=== PATIENT | female | born 1960 | race American Indian/Alaskan Native ===

== ENCOUNTER 2016-08-25 09:36 | Emergency (ER) | payer SELFPAY ==
[2016-08-25 10:12] VITALS: BP 153/90
--- NOTE | 2016-08-25 10:51 | XRay Report ---
Right hand: Laceration. There is swelling of the proximal third digit. There appears to be laceration of the skin on the radial side adjacent to the PIP joint. No foreign body and no underlying bone abnormality. The joints are aligned. No other findings. Impression: Third digit laceration.
[2016-08-25] MEDS ORDERED: VALIUM PO ONE (11:13)
[2016-08-25] MEDS ORDERED: NORCO 5/325 PO ONE (11:13)
[2016-08-25] MEDS ORDERED: XYLOCAINE 1% 20 mL INFILTRATI ONE (11:50)
[2016-08-25] MEDS ORDERED: BOOSTRIX IM ONE (12:14)
--- NOTE | 2016-08-25 12:24 | Emergency Department Report ---
Entered by LUANA WERNER, acting as scribe for ABRIL CUI PA. - General Chief Complaint: Wound/Laceration Stated Complaint: RT HAND MIDDLE FINGER Time Seen by Provider: 08/25/16 11:01 Source: patient Mode of arrival: Ambulatory Limitations: No Limitations - History of Present Illness Initial Comments: 56 year old with a PMHx of HTN and ashtma presents to the ED c/o a laceration to the 3rd digit on right hand that began this morning at 09:30. Patient states she was looking for a coffee mug in her kitchen cabinet at home and beer glass mugs began to fall breaking on impact. She subsequently received a laceration on her right hand. Associated symptom include pain on right hand, but she denies numbness, tingling, fever, nausea, vomiting, and loss of feeling. Rates her pain a 10/10 in severity. Not UTD on tetanus shot. She was driven to the ED by her daughter. NKDA. -: This morning Time: 09:30 Location: other (3rd digit on right hand) Extremity Location: Right: Hand (anterior 3rd digit) Place: home Patient Tetanus UTD: No Context: accidental (beer mugs fell out of the kitchen cabinet) Associated Symptoms: pain. denies: loss of feeling/numbness, suspect foreign body present, nausea/vomiting, fever, other (tingling) - Related Data Previous Rx's Medication Instructions Recorded Last Taken Type Cephalexin [Keflex] 500 mg PO BID #20 capsule 08/25/16 Unknown Rx Ibuprofen [Motrin] 800 mg PO Q8HR PRN #15 tablet 08/25/16 Unknown Rx Allergies Allergy/AdvReac Type Severity Reaction Status Date / Time No Known Allergies Allergy Unverified 08/25/16 10:01 ED Review of Systems Comment: All other systems reviewed and negative Constitutional: denies: chills, fever, other (tingling and loss of feeling) Respiratory: denies: orthopnea, shortness of breath, SOB with exertion, SOB at rest Cardiovascular: denies: chest pain, dyspnea on exertion, orthopnea Gastrointestinal: denies: nausea, vomiting Musculoskeletal: other (pain to 3rd digit on right hand) Skin: other (laceration on 3rd digit of right hand). denies: rash Neurological: denies: numbness ED Past Medical Hx - Past Medical History Hx Arthritis: Yes Hx Asthma: Yes - Surgical History Additional Surgical History: THYROIDECTOMY. TUBAL LIGATION. - Social History Smoking Status: Never Smoker Substance Use Type: None - Medications Home Medications: Home Medications Medication Instructions Recorded Confirmed Last Taken Type Cephalexin [Keflex] 500 mg PO BID #20 capsule 08/25/16 Unknown Rx Ibuprofen [Motrin] 800 mg PO Q8HR PRN #15 tablet 08/25/16 Unknown Rx ED Physical Exam - General Limitations: No Limitations General appearance: alert, in no apparent distress - Head Head exam: Present: atraumatic, normocephalic - Eye Eye exam: Present: normal appearance, EOMI Pupils: Present: normal accommodation - ENT ENT exam: Present: normal exam, mucous membranes moist - Neck Neck exam: Present: normal inspection, full ROM - Respiratory Respiratory exam: Present: normal lung sounds bilaterally. Absent: respiratory distress, wheezes, rales, rhonchi - Cardiovascular Cardiovascular Exam: Present: regular rate, normal rhythm. Absent: systolic murmur, diastolic murmur, rubs, gallop - GI/Abdominal GI/Abdominal exam: Present: soft. Absent: distended - Extremities Exam Extremities exam: Present: normal inspection, full ROM, tenderness (3rd digit on right hand), normal capillary refill. Absent: joint swelling - Expanded Upper Extremity Exam Right General: Present: laceration (1.5 laceration to 3rd digit on right hand). Absent: abrasion, foreign body, amputation, avulsion Shoulder Exam: Present: normal inspection, full ROM Upper Arm exam: Present: normal inspection, full ROM Elbow exam: Present: normal inspection, full ROM Forearm Wrist exam: Present: normal inspection, full ROM Hand Wrist exam: Present: full ROM, tenderness (3rd digit on right hand), laceration (3rd digit on right hand), erythema (minimal). Absent: swelling, abrasion, ecchymosis, deformity, dislocation, amputation Neuro motor exam: Present: wrist extension intact, thumb opposition intact, thumb IP flexion intact, thumb adduction intact, fingers 2-5 abduction intact Neurosensory exam: Present: radial nerve intact, ulnar nerve intact, median nerve intact. Absent: 2-point discrimination Vascular: Present: normal capillary refill, radial pulse (2+), brachial pulse (2 +), ulnar pulse (2+). Absent: vascular compromise, pulse deficit radial art, pulse deficit ulnar art, pulse deficit brachial art - Back Exam Back exam: Present: normal inspection, full ROM - Neurological Exam Neurological exam: Present: alert, oriented X3 - Psychiatric Psychiatric exam: Present: normal affect, normal mood - Skin Skin exam: Present: warm, dry, intact, erythema (minimal 3rd digit on right hand erythema), other (1.5 cm laceration on 3rd digit on right hand). Absent: rash, abrasion, ecchymosis ED Course Vital Signs 08/25/16 10:07 Temperature 98.7 F Pulse Rate 69 Respiratory 17 Rate Blood Pressure 153/90 O2 Sat by Pulse 100 Oximetry - Laceration /Wound Repair Left Finger Wound Location: upper extremity (should be right hand 3rd digit) Irrigated w/ Saline (ccs): 45 Betadine Prep?: Yes Anesthesia: 1% Lidocaine Volume Anesthetic (ccs): 5 Wound Debrided: minimal Wound Repaired With: sutures Suture Size/Type: 5:0, proline Number of Sutures: 5 Layer Closure?: No Sterile Dressing Applied?: Yes Progress: Patient tolerated procedure well ED Medical Decision Making - Medical Decision Making Patient was evaluated in fast track area of ED by this provider. Patient presented with a laceration to 3rd digit on right hand that began this morning at 09:30. In the ED, the patient will be given pain medication and a muscle relaxant. The patient's 1.5 cm laceration on 3rd digit on right hand will be sutured by this provider. Patient is in no acute distress at this time. Patient was driven to the ED by her daughter and will be discharged home. She is encouraged to return to the emergency room for any worsening symptoms. ED Disposition Clinical Impression: Laceration of finger of right hand Qualifiers: Encounter type: initial encounter Qualified Code(s): S61.219A - Laceration without foreign body of unspecified finger without damage to nail, initial encounter Disposition: DISCHARGED TO HOME OR SELFCARE Is pt being admited?: No Does the pt Need Aspirin: No Condition: Stable Instructions: Laceration (ED), Suture Care (ED), Finger Laceration (ED) Additional Instructions: Please keep the wound clean and dry. Please take antibiotics and use pain medication as prescribed. These return in 10-14 days for removal of sutures. He can return earlier if there is any signs of infection such as warmth fever to the hand purulent discharge from the wound. Prescriptions: Cephalexin [Keflex] 500 mg PO BID #20 capsule Ibuprofen [Motrin] 800 mg PO Q8HR PRN #15 tablet PRN Reason: Pain Referrals: PRIMARY CARE,MD [Primary Care Provider] - 3-5 Days Forms: Work/School Release Form(ED) This documentation as recorded by the ALPHONSO cortez JASMINE,accurately reflects the service I personally performed and the decisions made by , ABRIL CUI PA.
== END 2016-08-25 12:41 | disposition home or self-care (01) ==
LOC: ED 09:36
DX: S61.212A Laceration without foreign body of right middle finger without damage to nail, initial encounter (principal); J45.909 Unspecified asthma, uncomplicated; M19.90 Unspecified osteoarthritis, unspecified site
CPT/HCPCS: 90471; 90715

== ENCOUNTER 2016-09-06 07:36 | Emergency (ER) | payer SELFPAY ==
[2016-09-06 07:55] VITALS: BP 164/96
--- NOTE | 2016-09-06 09:43 | Emergency Department Report ---
Suture/Staple Removal - [facility] Chief Complaint: Laceration/Recheck/Suture Stated Complaint: RT HAND STITCHES REMOVAL Time Seen by Provider: 09/06/16 09:39 When Sutures or Ajit Placed: 11-14 Days Ago Wound Location: finger ED Review of Systems ROS: Stated complaint: RT HAND STITCHES REMOVAL Other details as noted in HPI Constitutional: denies: chills, fever Eyes: denies: eye pain, eye discharge, vision change ENT: denies: ear pain, throat pain Respiratory: denies: cough, shortness of breath, wheezing Cardiovascular: denies: chest pain, palpitations Endocrine: no symptoms reported Gastrointestinal: denies: abdominal pain, nausea, diarrhea Genitourinary: denies: urgency, dysuria, discharge Musculoskeletal: denies: back pain, joint swelling, arthralgia Skin: denies: rash, lesions Neurological: denies: headache, weakness, paresthesias Psychiatric: denies: anxiety, depression Hematological/Lymphatic: denies: easy bleeding, easy bruising ED Past Medical Hx - Past Medical History Hx Arthritis: Yes Hx Asthma: Yes - Surgical History Additional Surgical History: THYROIDECTOMY. TUBAL LIGATION. - Social History Smoking Status: Never Smoker Substance Use Type: None - Medications Home Medications: Home Medications Medication Instructions Recorded Confirmed Last Taken Type Cephalexin [Keflex] 500 mg PO BID #20 capsule 08/25/16 Unknown Rx Ibuprofen [Motrin] 800 mg PO Q8HR PRN #15 tablet 08/25/16 Unknown Rx Suture Removal Exam - Exam General: Vital signs noted. No distress. Alert and acting appropriately. Wound: No Pathologic Erythema, No Tenderness, No Drainage, No Pus, No Wound Dehiscence Other Systems: All other systems reviewed and are unremarkable. ED Course Vital Signs 09/06/16 07:52 Temperature 99.2 F Pulse Rate 72 Respiratory 17 Rate Blood Pressure 164/96 O2 Sat by Pulse 98 Oximetry ED Recheck MDM - Medical Decision Making All sutures removed Critical care attestation.: If time is entered above; I have spent that time in minutes in the direct care of this critically ill patient, excluding procedure time. ED Disposition Clinical Impression: Visit for suture removal Disposition: DISCHARGED TO HOME OR SELFCARE Is pt being admited?: No Does the pt Need Aspirin: No Condition: Good Instructions: Suture Removal (ED) Referrals: GIO SINGER MD [Staff Physician] - 3-5 Days Forms: Work/School Release Form(ED) Time of Disposition: 09:42
== END 2016-09-06 10:00 | disposition home or self-care (01) ==
LOC: ED 07:36
DX: Z48.02 Encounter for removal of sutures (principal); J45.909 Unspecified asthma, uncomplicated

== ENCOUNTER 2016-09-09 15:54 | Emergency (ER) | payer SELFPAY ==
[2016-09-09 16:10] VITALS: BP 151/87
--- NOTE | 2016-09-09 19:05 | Emergency Department Report ---
ED ENT HPI - General Chief complaint: Dental/Oral Stated complaint: BIT FOREIGN OBJECT/JAW/GUM PAIN Time Seen by Provider: 09/09/16 18:30 Source: patient Mode of arrival: Ambulatory Limitations: No Limitations - History of Present Illness Initial comments: Patient comes into the ER today with complaints of right lower tooth pain. Patient states that she was eating a salad yesterday and that there is some foreign object in her salad that she bit down on and she believes she contracted piece of her tooth. Patient has not seen a dentist and came in today simply asking for something to help her with the pain. He does state that she took some ibuprofen earlier today with minimal relief. MD complaint: tooth pain, trauma/injury -: Sudden Quality: sharp Consistency: constant Improves with: NSAID Worsens with: eating, other (breathing, cold fluids and air) Context- Dental: history of dental caries Associated Symptoms: toothache. denies: fever, cough, gum swelling, pain with swallowing, sore throat, tinnitus, discharge from ear, rhinorrhea - Related Data Previous Rx's Medication Instructions Recorded Last Taken Type Ibuprofen [Motrin 800 MG tab] 800 mg PO Q8HR PRN #15 tablet 08/25/16 09/09/16 06 :00 Rx Penicillin Vk [Veetids TAB] 500 mg PO QID #80 tablet 09/09/16 Unknown Rx traMADol [Ultram] 50 mg PO Q4HR PRN #30 tablet 09/09/16 Unknown Rx Allergies Allergy/AdvReac Type Severity Reaction Status Date / Time No Known Allergies Allergy Verified 09/09/16 16:03 ED Dental HPI - General Chief complaint: Dental/Oral Stated complaint: BIT FOREIGN OBJECT/JAW/GUM PAIN Time Seen by Provider: 09/09/16 18:30 Source: patient Mode of arrival: Ambulatory Limitations: No Limitations - Related Data Previous Rx's Medication Instructions Recorded Last Taken Type Ibuprofen [Motrin 800 MG tab] 800 mg PO Q8HR PRN #15 tablet 08/25/16 09/09/16 06 :00 Rx Penicillin Vk [Veetids TAB] 500 mg PO QID #80 tablet 09/09/16 Unknown Rx traMADol [Ultram] 50 mg PO Q4HR PRN #30 tablet 09/09/16 Unknown Rx Allergies Allergy/AdvReac Type Severity Reaction Status Date / Time No Known Allergies Allergy Verified 09/09/16 16:03 ED Review of Systems ROS: Stated complaint: BIT FOREIGN OBJECT/JAW/GUM PAIN Other details as noted in HPI Constitutional: denies: chills, fever Eyes: denies: eye pain, eye discharge, vision change ENT: ear pain, dental pain. denies: throat pain Respiratory: denies: cough, shortness of breath, wheezing Cardiovascular: denies: chest pain, palpitations Endocrine: no symptoms reported Gastrointestinal: denies: abdominal pain, nausea, diarrhea Genitourinary: denies: urgency, dysuria, discharge Musculoskeletal: denies: back pain, joint swelling, arthralgia Skin: denies: rash, lesions Neurological: denies: headache, weakness, paresthesias Psychiatric: denies: anxiety, depression Hematological/Lymphatic: denies: easy bleeding, easy bruising ED Past Medical Hx - Past Medical History Hx Arthritis: Yes Hx Asthma: Yes - Surgical History Additional Surgical History: THYROIDECTOMY. TUBAL LIGATION. - Social History Smoking Status: Never Smoker Substance Use Type: None - Medications Home Medications: Home Medications Medication Instructions Recorded Confirmed Last Taken Type Ibuprofen [Motrin 800 MG tab] 800 mg PO Q8HR PRN #15 tablet 08/25/16 09/09/16 06:00 Rx Penicillin Vk [Veetids TAB] 500 mg PO QID #80 tablet 09/09/16 Unknown Rx traMADol [Ultram] 50 mg PO Q4HR PRN #30 tablet 09/09/16 Unknown Rx ED Physical Exam - General Limitations: No Limitations General appearance: alert, in no apparent distress, other (patient holding right side of her mouth upon entering exam room.) - Head Head exam: Present: atraumatic, normocephalic - Eye Eye exam: Present: normal appearance - ENT ENT exam: Present: mucous membranes moist, TM's normal bilaterally, normal external ear exam, other (right lower posterior molar tooth with anterior fracture noted around silver filling. No gum redness or abscess noted on examination.) - Neck Neck exam: Present: normal inspection - Respiratory Respiratory exam: Present: normal lung sounds bilaterally. Absent: respiratory distress - Cardiovascular Cardiovascular Exam: Present: regular rate, normal rhythm. Absent: systolic murmur, diastolic murmur, rubs, gallop - GI/Abdominal GI/Abdominal exam: Present: soft, normal bowel sounds - Extremities Exam Extremities exam: Present: normal inspection - Back Exam Back exam: Present: normal inspection - Neurological Exam Neurological exam: Present: alert, oriented X3 - Psychiatric Psychiatric exam: Present: normal affect, normal mood - Skin Skin exam: Present: warm, dry, intact, normal color. Absent: rash ED Course Vital Signs 09/09/16 16:06 Temperature 97.9 F Pulse Rate 78 Respiratory 18 Rate Blood Pressure 151/87 O2 Sat by Pulse 100 Oximetry ED Medical Decision Making - Medical Decision Making Patient is nontoxic and hemodynamically stable. Patient does have a physical exam consistent with history of dental fracture. I will prescribe patient some pain medications as well as start her on some antibiotics with follow-up referral to dental clinic. Patient is stable for discharge and is agreement with treatment plan. Critical care attestation.: If time is entered above; I have spent that time in minutes in the direct care of this critically ill patient, excluding procedure time. ED Disposition Clinical Impression: Tooth fracture, Pain, dental Disposition: DISCHARGED TO HOME OR SELFCARE Is pt being admited?: No Does the pt Need Aspirin: No Condition: Stable Instructions: Acute dental trauma (ED), Toothache (ED) Prescriptions: Penicillin Vk [Veetids TAB] 500 mg PO QID #80 tablet traMADol [Ultram] 50 mg PO Q4HR PRN #30 tablet PRN Reason: Pain Referrals: PRIMARY CARE, [Primary Care Provider] - 3-[address] [facility] [Outside] - 3-5 Days Time of Disposition: 19:14
== END 2016-09-09 19:46 | disposition home or self-care (01) ==
LOC: ED 15:54
DX: S02.5XXA Fracture of tooth (traumatic), initial encounter for closed fracture (principal); J45.909 Unspecified asthma, uncomplicated; M19.90 Unspecified osteoarthritis, unspecified site; Z98.51 Tubal ligation status; Z90.89 Acquired absence of other organs; X58.XXXA Exposure to other specified factors, initial encounter; Y93.89 Activity, other specified; Y99.8 Other external cause status; Y92.89 Other specified places as the place of occurrence of the external cause
CPT/HCPCS: 99282

== ENCOUNTER 2019-03-02 12:52 | Emergency (ER) | payer OTHER ==
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
[2019-03-02] MEDS ORDERED: ACETAMINOPHEN 325 MG TAB PO ONE (14:37)
[2019-03-02] MEDS ORDERED: CYCLOBENZAPRINE 10 MG TAB PO ONE (14:37)
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
[2019-03-02 14:58] VITALS: BP 180/98
== END 2019-03-02 15:20 | disposition home or self-care (01) ==
LOC: ED 12:52
DX: S16.1XXA Strain of muscle, fascia and tendon at neck level, initial encounter (principal); M19.90 Unspecified osteoarthritis, unspecified site; J45.909 Unspecified asthma, uncomplicated; E89.0 Postprocedural hypothyroidism; Z98.51 Tubal ligation status; Z79.1 Long term (current) use of non-steroidal anti-inflammatories (NSAID); Z79.4 Long term (current) use of insulin; Z79.899 Other long term (current) drug therapy; V49.59XA Passenger injured in collision with other motor vehicles in traffic accident, initial encounter; Y93.89 Activity, other specified; Y92.410 Unspecified street and highway as the place of occurrence of the external cause; Y99.8 Other external cause status
CPT/HCPCS: 72040; 99283

== ENCOUNTER 2019-07-17 12:37 | Emergency (ER) | payer SELFPAY ==
--- NOTE | 2019-07-17 13:14 | Emergency Department Report ---
ED General Adult HPI - General Chief complaint: Upper Respiratory Infection Stated complaint: FLU Time Seen by Provider: 07/17/19 13:12 Source: patient Mode of arrival: Ambulatory Limitations: No Limitations - History of Present Illness Initial comments: 59yo BF states that she has been experiencing a cough SOB, difficulty with inhaling, chills and body aches x 1 week. She further states that she has a history of asthma and is out of her inhaler She denies exposure to COVID-19 and travel. Severity scale (0 -10): 8 - Related Data Previous Rx's Medication Instructions Recorded Last Taken Type Ibuprofen [Motrin 800 MG tab] 800 mg PO Q8HR PRN #15 tablet 08/25/16 09/09/16 0 6:00 Rx Penicillin Vk [Veetids TAB] 500 mg PO QID #80 tablet 09/09/16 Unknown Rx traMADoL [Ultram] 50 mg PO Q4HR PRN #30 tablet 09/09/16 Unknown Rx Cyclobenzaprine [Flexeril] 10 mg PO QHS PRN #12 tablet 03/02/19 Unknown Rx Naproxen [EC-Naproxen] 500 mg PO BID PRN #20 tablet. 03/02/19 Unknown Rx Allergies Allergy/AdvReac Type Severity Reaction Status Date / Time No Known Allergies Allergy Verified 09/09/16 16:03 ED Review of Systems ROS: Stated complaint: FLU Other details as noted in HPI ED Past Medical Hx - Past Medical History Hx Arthritis: Yes Hx Asthma: Yes - Surgical History Additional Surgical History: THYROIDECTOMY. TUBAL LIGATION. - Social History Smoking Status: Never Smoker Substance Use Type: None - Medications Home Medications: Home Medications Medication Instructions Recorded Confirmed Last Taken Type Ibuprofen [Motrin 800 MG tab] 800 mg PO Q8HR PRN #15 tablet 08/25/16 09/09/16 09/09/16 06:00 Rx Penicillin Vk [Veetids TAB] 500 mg PO QID #80 tablet 09/09/16 Unknown Rx traMADoL [Ultram] 50 mg PO Q4HR PRN #30 tablet 09/09/16 Unknown Rx Cyclobenzaprine [Flexeril] 10 mg PO QHS PRN #12 tablet 03/02/19 Unknown Rx Naproxen [EC-Naproxen] 500 mg PO BID PRN #20 tablet. 03/02/19 Unknown Rx ED Physical Exam - General Limitations: No Limitations ED Course Vital Signs 07/17/19 12:42 Temperature 99.2 F Pulse Rate 100 H Respiratory 15 Rate Blood Pressure 146/91 [Left] O2 Sat by Pulse 98 Oximetry Critical care attestation.: If time is entered above; I have spent that time in minutes in the direct care of this critically ill patient, excluding procedure time. ED Disposition Condition: Stable
[2019-07-17 15:40] VITALS: BP 169/94
--- NOTE | 2019-07-17 15:41 | Emergency Department Report ---
- General Chief Complaint: Upper Respiratory Infection Stated Complaint: FLU Time Seen by Provider: 07/17/19 13:12 Source: patient Mode of arrival: Ambulatory Limitations: No Limitations - History of Present Illness MD Complaint: cough, rhinorrhea, nasal congestion -: Gradual, week(s) (2) Severity: mild, moderate Quality: dull Consistency: constant Improves With: nothing Worsens With: nothing Associated Symptoms: rhinorrhea, nasal congestion, cough. denies: fever, chills, shortness of breath, abdominal pain, vomiting, diarrhea, confusion, right sweats, weight loss, epistaxis, ear pain - Related Data Previous Rx's Medication Instructions Recorded Last Taken Type Ibuprofen [Motrin 800 MG tab] 800 mg PO Q8HR PRN #15 tablet 08/25/16 09/09/16 06:00 Rx Penicillin Vk [Veetids TAB] 500 mg PO QID #80 tablet 09/09/16 Unknown Rx traMADoL [Ultram] 50 mg PO Q4HR PRN #30 tablet 09/09/16 Unknown Rx Cyclobenzaprine [Flexeril] 10 mg PO QHS PRN #12 tablet 03/02/19 Unknown Rx Naproxen [EC-Naproxen] 500 mg PO BID PRN #20 tablet. 03/02/19 Unknown Rx Albuterol INH(or & Nicu Only) 1 puff IH Q4-6H PRN #1 inha 07/17/19 Unknown Rx [ProAir HFA Inhaler] guaiFENesin/CODEINE [Robitussin AC] 5 ml PO Q6H PRN #120 ml 07/17/19 Unknown Rx predniSONE [Deltasone] 20 mg PO QDAY #5 tab 07/17/19 Unknown Rx Allergies Allergy/AdvReac Type Severity Reaction Status Date / Time No Known Allergies Allergy Verified 09/09/16 16:03 ED Review of Systems ROS: Stated complaint: FLU Other details as noted in HPI Comment: All other systems reviewed and negative ED Past Medical Hx - Past Medical History Hx Arthritis: Yes Hx Asthma: Yes - Surgical History Additional Surgical History: THYROIDECTOMY. TUBAL LIGATION. - Social History Smoking Status: Never Smoker Substance Use Type: None - Medications Home Medications: Home Medications Medication Instructions Recorded Confirmed Last Taken Type Ibuprofen [Motrin 800 MG tab] 800 mg PO Q8HR PRN #15 tablet 08/25/16 09/09/1617 06:00 Rx Penicillin Vk [Veetids TAB] 500 mg PO QID #80 tablet 09/09/16 Unknown Rx traMADoL [Ultram] 50 mg PO Q4HR PRN #30 tablet 09/09/16 Unknown Rx Cyclobenzaprine [Flexeril] 10 mg PO QHS PRN #12 tablet 03/02/19 Unknown Rx Naproxen [EC-Naproxen] 500 mg PO BID PRN #20 tablet. 03/02/19 Unknown Rx Albuterol INH(or & Nicu Only) 1 puff IH Q4-6H PRN #1 inha 07/17/19 Unknown Rx [ProAir HFA Inhaler] guaiFENesin/CODEINE [Robitussin AC] 5 ml PO Q6H PRN #120 ml 07/17/19 Unknown Rx predniSONE [Deltasone] 20 mg PO QDAY #5 tab 07/17/19 Unknown Rx ED Physical Exam - General Limitations: No Limitations General appearance: alert, in no apparent distress - Head Head exam: Present: atraumatic, normocephalic - Eye Eye exam: Present: normal appearance, PERRL, EOMI Pupils: Present: normal accommodation - ENT ENT exam: Present: normal exam, normal orophraynx, mucous membranes moist, TM's normal bilaterally, other (Nasal congestion bilaterally right is greater in the left with some swelling noted. Posterior pharynx has mild erythema but no exudate or swelling tongue and uvula are midline and normal size.) - Neck Neck exam: Present: normal inspection - Respiratory Respiratory exam: Present: normal lung sounds bilaterally. Absent: respiratory distress, wheezes, rales, rhonchi, chest wall tenderness, accessory muscle use, decreased breath sounds - Cardiovascular Cardiovascular Exam: Present: regular rate, normal rhythm. Absent: systolic m urmur, diastolic murmur, rubs, gallop - GI/Abdominal GI/Abdominal exam: Present: soft, normal bowel sounds - Extremities Exam Extremities exam: Present: normal inspection - Back Exam Back exam: Present: normal inspection - Neurological Exam Neurological exam: Present: alert, oriented X3 - Psychiatric Psychiatric exam: Present: normal affect, normal mood - Skin Skin exam: Present: warm, dry, intact, normal color. Absent: rash ED Course Vital Signs 07/17/19 12:42 Temperature 99.2 F Pulse Rate 100 H Respiratory 15 Rate Blood Pressure 146/91 [Left] O2 Sat by Pulse 98 Oximetry Critical care attestation.: If time is entered above; I have spent that time in minutes in the direct care of this critically ill patient, excluding procedure time. ED Disposition Clinical Impression: URI (upper respiratory infection) Disposition: DC-01 TO HOME OR SELFCARE Is pt being admited?: No Does the pt Need Aspirin: No Condition: Stable Instructions: Upper Respiratory Infection (ED), Cold Symptoms (ED) Prescriptions: predniSONE [Deltasone] 20 mg PO QDAY #5 tab Albuterol INH(or & Nicu Only) [ProAir HFA Inhaler] 1 puff IH Q4-6H PRN #1 inha PRN Reason: Cough guaiFENesin/CODEINE [Robitussin AC] 5 ml PO Q6H PRN #120 ml PRN Reason: Cough Referrals: YESSY FARIAS MD [Staff Physician] - 3-5 Days [facility] [Provider Group] - 3-5 Days
--- NOTE | 2019-07-17 16:32 | Event Note ---
ED Screening Note Date of service: 07/17/19 Time: 13:15 ED Screening Note: This initial assessment/diagnostic orders/clinical plan/treatment(s) is/are subject to change based on patients health status, clinical progression and re- assessment by fellow clinical providers in the ED. Further treatment and workup at subsequent clinical providers discretion. Patient/guardian urged not to elope from the ED as their condition may be serious if not clinically assessed and managed. Initial orders include: 59yo BF states that she has been experiencing a cough SOB, difficulty with inhaling, chills and body aches x 1 week. She further states that she has a history of asthma and is out of her inhaler She denies exposure to COVID-19 and travel.
== END 2019-07-17 15:50 | disposition home or self-care (01) ==
LOC: ED 12:37
DX: J06.9 Acute upper respiratory infection, unspecified (principal); J45.909 Unspecified asthma, uncomplicated; M19.90 Unspecified osteoarthritis, unspecified site; Z90.89 Acquired absence of other organs; Z98.890 Other specified postprocedural states; Z79.899 Other long term (current) drug therapy; Z98.51 Tubal ligation status
CPT/HCPCS: 99281

== ENCOUNTER 2020-02-08 12:52 | Emergency (ER) | payer MEDICAID, OTHER ==
[2020-02-08] MEDS ORDERED: ONDANSETRON 4 MG ODT TAB PO ONE (14:00)
[2020-02-08] MEDS ORDERED: ONDANSETRON 4 MG ODT TAB ONE (14:01)
[2020-02-08] MEDS ORDERED: diphenhydrAMINE 25 MG CAP PO ONE (14:01)
--- NOTE | 2020-02-08 14:04 | Emergency Department Report ---
ED Anxiety HPI - General Chief Complaint: Adult Asthma Stated Complaint: ASTHMA ATTACK Time Seen by Provider: 02/08/20 13:59 Source: patient Mode of arrival: Ambulatory - History of Present Illness MD Complaint: anxiety, shortness of breath -: This morning Time: 04:00 Place: outdoors Previous History of Same: Yes Severity: severe Quality: constant Improves With: nothing Worsens With: thinking about event Associated symptoms: shortness of breath, headaches, other - Related Data Home Medications: Previous Rx's Medication Instructions Recorded Last Taken Type Ibuprofen [Motrin 800 MG tab] 800 mg PO Q8HR PRN #15 tablet 08/25/16 09/09/16 06:00 Rx Penicillin Vk [Veetids TAB] 500 mg PO QID #80 tablet 09/09/16 Unknown Rx traMADoL [Ultram] 50 mg PO Q4HR PRN #30 tablet 09/09/16 Unknown Rx Cyclobenzaprine [Flexeril] 10 mg PO QHS PRN #12 tablet 03/02/19 Unknown Rx Naproxen [EC-Naproxen] 500 mg PO BID PRN #20 tablet. 03/02/19 Unknown Rx Albuterol Mdi (or & Nicu Only) 1 puff IH Q4-6H PRN #1 inha 07/17/19 Unknown Rx [ProAir HFA Inhaler] guaiFENesin/CODEINE [Robitussin AC] 5 ml PO Q6H PRN #120 ml 07/17/19 Unknown Rx predniSONE [Deltasone] 20 mg PO QDAY #5 tab 07/17/19 Unknown Rx hydrOXYzine HCL [Atarax] 25 mg PO Q6HR PRN #20 tablet 02/08/20 Unknown Rx Allergies/Adverse Reactions: Allergies Allergy/AdvReac Type Severity Reaction Status Date / Time No Known Allergies Allergy Verified 09/09/16 16:03 ED Review of Systems ROS: Stated complaint: ASTHMA ATTACK Other details as noted in HPI Comment: All other systems reviewed and negative ED Past Medical Hx - Past Medical History Hx Arthritis: Yes Hx Asthma: Yes - Surgical History Additional Surgical History: THYROIDECTOMY. TUBAL LIGATION. - Social History Smoking Status: Never Smoker Substance Use Type: None - Medications Home Medications: Home Medications Medication Instructions Recorded Confirmed Last Taken Type Ibuprofen [Motrin 800 MG tab] 800 mg PO Q8HR PRN #15 tablet 08/25/16 09/09/16 09/09/16 06:00 Rx Penicillin Vk [Veetids TAB] 500 mg PO QID #80 tablet 09/09/16 Unknown Rx traMADoL [Ultram] 50 mg PO Q4HR PRN #30 tablet 09/09/16 Unknown Rx Cyclobenzaprine [Flexeril] 10 mg PO QHS PRN #12 tablet 03/02/19 Unknown Rx Naproxen [EC-Naproxen] 500 mg PO BID PRN #20 tablet. 03/02/19 Unknown Rx Albuterol Mdi (or & Nicu Only) 1 puff IH Q4-6H PRN #1 inha 07/17/19 Unknown Rx [ProAir HFA Inhaler] guaiFENesin/CODEINE [Robitussin AC] 5 ml PO Q6H PRN #120 ml 07/17/19 Unknown Rx predniSONE [Deltasone] 20 mg PO QDAY #5 tab 07/17/19 Unknown Rx hydrOXYzine HCL [Atarax] 25 mg PO Q6HR PRN #20 tablet 02/08/20 Unknown Rx ED Physical Exam - General Limitations: No Limitations General appearance: alert - Head Head exam: Present: atraumatic, normocephalic - Eye Eye exam: Present: normal appearance - ENT ENT exam: Present: mucous membranes moist - Neck Neck exam: Present: normal inspection, full ROM. Absent: tenderness - Respiratory Respiratory exam: Present: normal lung sounds bilaterally. Absent: respiratory distress, wheezes, rales, accessory muscle use - Cardiovascular Cardiovascular Exam: Present: regular rate - Neurological Exam Neurological exam: Present: alert, oriented X3, normal gait - Psychiatric Psychiatric exam: Present: normal affect, normal mood, anxious - Skin Skin exam: Present: warm, dry, intact, normal color. Absent: rash ED Course Vital Signs 02/08/20 02/08/20 13:08 17:32 Temperature 97.9 F 97.8 F Pulse Rate 100 H 67 Respiratory 30 H 16 Rate Blood Pressure 160/87 Blood Pressure 169/120 [Right] O2 Sat by Pulse 100 99 Oximetry Critical care attestation.: If time is entered above; I have spent that time in minutes in the direct care of this critically ill patient, excluding procedure time. ED Disposition Clinical Impression: Anxiety attack Disposition: DC-01 TO HOME OR SELFCARE Is pt being admited?: No Does the pt Need Aspirin: No Condition: Stable Instructions: Anxiety (ED) Additional Instructions: Please take medication as needed. Is very important for you to follow-up with a behavioral health specialist as well as your primary care provider. Please continue with all medications for your asthma. Prescriptions: hydrOXYzine HCL [Atarax] 25 mg PO Q6HR PRN #20 tablet PRN Reason: Anxiety [facility] - [facility]-5 Days Forms: Work/School Release Form(ED)
[2020-02-08 17:33] VITALS: BP 160/87
== END 2020-02-08 18:16 | disposition home or self-care (01) ==
LOC: ED 12:52
DX: F41.9 Anxiety disorder, unspecified (principal); M19.91 Primary osteoarthritis, unspecified site; J45.909 Unspecified asthma, uncomplicated; Z90.89 Acquired absence of other organs; Z98.890 Other specified postprocedural states; Z98.51 Tubal ligation status; Z79.1 Long term (current) use of non-steroidal anti-inflammatories (NSAID); Z79.2 Long term (current) use of antibiotics; Z79.899 Other long term (current) drug therapy
CPT/HCPCS: 99282; Q0162

== ENCOUNTER 2020-07-26 16:40 | Emergency (ER) | payer MEDICAID ==
[2020-07-26 16:48] VITALS: BP 150/80
--- NOTE | 2020-07-26 18:20 | XRay Report ---
EXAMINATION: Left hip radiograph, 2 views, 07/26/2020 CLINICAL INFORMATION: Fall. Trauma COMPARISON: None. FINDINGS: There is no evidence of acute fracture or dislocation of the left hip. No significant bony degenerative changes are noted. Signer Name: Brenda Núñez MD Signed: 07/26/2020 6:16 PM Workstation Name: [id number]
--- NOTE | 2020-07-26 18:21 | XRay Report ---
EXAMINATION: Left foot radiograph, 3 views, 07/26/2020 CLINICAL INFORMATION: Left foot pain after fall COMPARISON: None. FINDINGS: There is no evidence of acute fracture or dislocation. No focal soft tissue swelling is vis ualized. Signer Name: Brenda Núñez MD Signed: 07/26/2020 6:17 PM Workstation Name: [id number]
--- NOTE | 2020-07-26 18:22 | XRay Report ---
EXAMINATION: Left knee radiograph, 3 views, 07/26/2020 CLINICAL INFORMATION: Fall. Pain. COMPARISON: None. FINDINGS: There is no evidence of acute fracture or subluxation. Mild to moderate bony degenerative c hanges of the left knee are noted. Signer Name: Brenda Núñez MD Signed: 07/26/2020 6:18 PM Workstation Name: [id number]
[2020-07-26] MEDS ORDERED: traMADol 50 MG TAB PO ONE (18:32)
--- NOTE | 2020-07-26 18:32 | Emergency Department Report ---
ED Fall HPI - General Chief Complaint: Fall Stated Complaint: LEFT SIDE INJURY/FALL SIDE Time Seen by Provider: 07/26/20 17:26 Source: patient Mode of arrival: Ambulatory - History of Present Illness Initial Comments: This is a 60-year-old obese female states she was in a clothing store earlier today when she stepped back into a clothing rack she lost her balance and fell. She denies striking her head she denies any loss of consciousness she is complaining of left hip left knee pain. She was able to ambulate after the fall patient is currently in no distress. She has a past medical history of arthritis asthma and hypertension. -: Sudden Fall From: standing Place Fall Occurred: other Loss of Consciousness: none Prolonged Down Time?: no Symptoms Prior to Fall: none Location: other (Left hip left ball) Location - Extremities: Left: Knee Severity scale (0 -10): 3 Quality: aching Context: tripped/slipped Associated Symptoms: denies - Related Data Previous Rx's Medication Instructions Recorded Last Taken Type Ibuprofen [Motrin 800 MG tab] 800 mg PO Q8HR PRN #15 tablet 08/25/16 09/09/16 06:00 Rx Penicillin Vk [Veetids TAB] 500 mg PO QID #80 tablet 09/09/16 Unknown Rx traMADoL [Ultram] 50 mg PO Q4HR PRN #30 tablet 09/09/16 Unknown Rx Cyclobenzaprine [Flexeril] 10 mg PO QHS PRN #12 tablet 03/02/19 Unknown Rx Naproxen [EC-Naproxen] 500 mg PO BID PRN #20 tablet. 03/02/19 Unknown Rx Albuterol Mdi (or & Nicu Only) 1 puff IH Q4-6H PRN #1 inha 07/17/19 Unknown Rx [ProAir HFA Inhaler] guaiFENesin/CODEINE [Robitussin AC] 5 ml PO Q6H PRN #120 ml 07/17/19 Unknown Rx predniSONE [Deltasone] 20 mg PO QDAY #5 tab 07/17/19 Unknown Rx hydrOXYzine HCL [Atarax] 25 mg PO Q6HR PRN #20 tablet 02/08/20 Unknown Rx Ibuprofen [Motrin] 600 mg PO Q8H PRN #20 tablet 07/26/20 Unknown Rx Allergies Allergy/AdvReac Type Severity Reaction Status Date / Time No Known Allergies Allergy Verified 09/09/16 16:03 ED Review of Systems ROS: Stated complaint: LEFT SIDE INJURY/FALL SIDE Other details as noted in HPI Comment: All other systems reviewed and negative Constitutional: no symptoms reported Eyes: denies: eye pain ENT: denies: ear pain, dental pain Cardiovascular: denies: chest pain, palpitations Endocrine: no symptoms reported Gastrointestinal: denies: abdominal pain, vomiting, constipation Musculoskeletal: other (Left hip left knee pain) Skin: other (Abrasion to the left ball) Neurological: denies: headache, weakness, numbness, paresthesias, confusion, abnormal gait ED Past Medical Hx - Past Medical History Hx Hypertension: Yes Hx Arthritis: Yes Hx Asthma: Yes - Surgical History Additional Surgical History: THYROIDECTOMY. TUBAL LIGATION. - Social History Smoking Status: Current Every Day Smoker - Medications Home Medications: Home Medications Medication Instructions Recorded Confirmed Last Taken Type Ibuprofen [Motrin 800 MG tab] 800 mg PO Q8HR PRN #15 tablet 08/25/16 09/09/16 09/09/16 06:00 Rx Penicillin Vk [Veetids TAB] 500 mg PO QID #80 tablet 09/09/16 Unknown Rx traMADoL [Ultram] 50 mg PO Q4HR PRN #30 tablet 09/09/16 Unknown Rx Cyclobenzaprine [Flexeril] 10 mg PO QHS PRN #12 tablet 03/02/19 Unknown Rx Naproxen [EC-Naproxen] 500 mg PO BID PRN #20 tablet. 03/02/19 Unknown Rx Albuterol Mdi (or & Nicu Only) 1 puff IH Q4-6H PRN #1 inha 07/17/19 Unknown Rx [ProAir HFA Inhaler] guaiFENesin/CODEINE [Robitussin AC] 5 ml PO Q6H PRN #120 ml 07/17/19 Unknown Rx predniSONE [Deltasone] 20 mg PO QDAY #5 tab 07/17/19 Unknown Rx hydrOXYzine HCL [Atarax] 25 mg PO Q6HR PRN #20 tablet 02/08/20 Unknown Rx Ibuprofen [Motrin] 600 mg PO Q8H PRN #20 tablet 07/26/20 Unknown Rx ED Physical Exam - General Limitations: No Limitations General appearance: alert, in no apparent distress - Head Head exam: Present: atraumatic - Eye Eye exam: Present: normal appearance - ENT ENT exam: Present: mucous membranes moist - Neck Neck exam: Present: normal inspection. Absent: tenderness - Respiratory Respiratory exam: Present: normal lung sounds bilaterally. Absent: respiratory distress, wheezes, rales - Cardiovascular Cardiovascular Exam: Present: regular rate, normal heart sounds - GI/Abdominal GI/Abdominal exam: Present: soft - Extremities Exam Extremities exam: Present: tenderness (Left ball left knee and left hip) - Back Exam Back exam: Present: normal inspection. Absent: paraspinal tenderness, vertebral tenderness - Neurological Exam Neurological exam: Present: alert, oriented X3 - Psychiatric Psychiatric exam: Present: normal affect - Skin Skin exam: Present: warm, dry, abrasion (Left ball) ED Course Vital Signs 07/26/20 16:46 Temperature 99.1 F Pulse Rate 83 Respiratory 18 Rate Blood Pressure 150/80 O2 Sat by Pulse 97 Oximetry - Reevaluation(s) Reevaluation #1: 07/26/20 18:38 Patient returned from x-ray all x-ray results reviewed and discussed with patient there is no acute fracture or dislocation patient states she is doing okay just ongoing left hip and left knee pain she is able to ambulate I discussed rice instructions with patient she verbalizes understanding ED Medical Decision Making - Radiology Data Radiology results: report reviewed EXAMINATION: Left knee radiograph, 3 views, 07/26/2020 CLINICAL INFORMATION: Fall. Pain. COMPARISON: None. FINDINGS: There is no evidence of acute fracture or subluxation. Mild to moderate bony degenerative changes of the left knee are noted. Left hip xray EXAMINATION: Left hip radiograph, 2 views, 07/26/2020 CLINICAL INFORMATION: Fall. Trauma COMPARISON: None. FINDINGS: There is no evidence of acute fracture or dislocation of the left hip. No significant bony degenerative changes are noted. EXAMINATION: Left foot radiograph, 3 views, 07/26/2020 CLINICAL INFORMATION: Left foot pain after fall COMPARISON: None. FINDINGS: There is no evidence of acute fracture or dislocation. No focal soft tissue swelling is visualized. - Medical Decision Making 60-year-old female was in the clothing store when she had a accidental fall she came to the emergency room complaining of left hip left knee and left foot pain. At the time of fall patient denies any head injury no loss of consciousness she has no chest pain or shortness of breath. All x-rays of her of her left hip left knee left foot reviewed her radiologist there is no acute fracture or dislocation. Findings discussed with patient. Patient has an abrasion to her left lower leg contusion to her left leg. - Differential Diagnosis Left leg abrasion contusion sprain Critical Care Time: No Critical care attestation.: If time is entered above; I have spent that time in minutes in the direct care of this critically ill patient, excluding procedure time. ED Disposition Clinical Impression: Abrasion, left lower leg, initial encounter, Left hip pain Contusion of left leg Qualifiers: Encounter type: initial encounter Qualified Code(s): S80.12XA - Contusion of left lower leg, initial encounter Disposition: TO HOME OR SELFCARE Is pt being admited?: No Does the pt Need Aspirin: No Condition: Stable Instructions: Contusion, [id number], Hip Pain, Foot Contusion, [id number], Abrasion, [id number] Additional Instructions: Rest ice and compression as needed. Follow-up with your primary care doctor in 3 to 5 days all your x-rays that were done today shows no findings of fracture or dislocation. Prescriptions: Ibuprofen [Motrin] 600 mg PO Q8H PRN #20 tablet PRN Reason: Pain Referrals: YESSY FARIAS MD [Staff Physician] - 3-5 Days Time of Disposition: 18:45
[2020-07-26] MEDS ORDERED: NEOMY 3.5 MG/BACIT 400 UNITS/POLY B 5000 UNITS/GM OINT PACKET TP ONE (18:35)
== END 2020-07-26 19:10 | disposition home or self-care (01) ==
LOC: ED 16:40
DX: S80.12XA Contusion of left lower leg, initial encounter (principal); M25.552 Pain in left hip; I10 Essential (primary) hypertension; M19.91 Primary osteoarthritis, unspecified site; J45.909 Unspecified asthma, uncomplicated; F17.200 Nicotine dependence, unspecified, uncomplicated; Z98.890 Other specified postprocedural states; Z79.899 Other long term (current) drug therapy; W19.XXXA Unspecified fall, initial encounter; Y93.89 Activity, other specified; Y92.89 Other specified places as the place of occurrence of the external cause; Y99.8 Other external cause status
CPT/HCPCS: 73502; 73562; 73630; 99283; A6250